=== PATIENT | female | born 1960 | race American Indian/Alaskan Native ===

== ENCOUNTER 2017-10-04 12:11 | Emergency (ER) | payer OTHER ==
[2017-10-04 12:58] VITALS: BP 146/86
[2017-10-04] MEDS ORDERED: MOTRIN ONE (14:22)
[2017-10-04] MEDS ORDERED: ULTRAM ONE (14:22)
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
[2017-10-04] MEDS ORDERED: MOTRIN PO ONE (14:23)
[2017-10-04] MEDS ORDERED: ULTRAM PO ONE (14:23)
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
== END 2017-10-04 17:06 | disposition home or self-care (01) ==
LOC: ED 12:11
DX: M51.36 Other intervertebral disc degeneration, lumbar region (principal); I10 Essential (primary) hypertension; Z88.0 Allergy status to penicillin
CPT/HCPCS: 72040; 72070; 72100; 99283